=== PATIENT | male | born 1940 | race Caucasian/White ===

== ENCOUNTER 2021-01-23 22:28 | Emergency (ER) | payer MEDICARE ==
--- NOTE | 2021-01-23 23:03 | EDM.PDOC ---
ED HPI GENERAL MEDICAL PROBLEM - General Chief Complaint: Respiratory Problem Stated Complaint: SOB Time Seen by Provider: 01/23/21 22:30 Source of Information: Reports: Patient History Limitations: Reports: No Limitations - History of Present Illness INITIAL COMMENTS - FREE TEXT/NARRATIVE: pt presents with shortness of breath which started about an hour [employer]. states intermittent hx of similar symptoms with "anxiety" with activity which improves with rest. recent pneumonia in December 2020. med hx of DM2, HTN. PCP in [place]. pt denies chest pain, nausea, vomiting, dizziness, unilateral weakness, cough, fever. Onset: Today, Sudden Onset Date: 01/23/21 Onset Time: 21:30 Improves with: Reports: Rest Worsens with: Reports: Movement (activity) Context: Reports: Activity Associated Symptoms: Reports: No Other Symptoms - Related Data Allergies Allergy/AdvReac Type Severity Reaction Status Date / Time No Known Allergies Allergy Verified 01/23/21 23:24 ED ROS GENERAL - Review of Systems Review Of Systems: Comprehensive ROS is negative, except as noted in HPI. ED EXAM, GENERAL - Physical Exam Exam: See Below Exam Limited By: No Limitations General Appearance: Alert, WD/WN Throat/Mouth: Normal Inspection, Normal Lips Respiratory/Chest: No Respiratory Distress, No Accessory Muscle Use, Crackles, Rales Cardiovascular: Normal Peripheral Pulses, Regular Rate, Rhythm, No Murmur Peripheral Pulses: 2+: Radial (L), Radial (R) Extremities: Pedal Edema (left leg +2 pitting edema. R leg) Neurological: Alert, Oriented, CN II-XII Intact Psychiatric: Normal Affect Skin Exam: Warm, Dry, Intact, Normal Color #1 Interpretation EKG Date: 01/24/21 Rhythm: NSR P-Wave: Present QRS: RBBB ST-T: Normal QT: Normal Comparison: NA - No Prior EKG Course - Orders/Labs/Meds Orders: Active Orders 24 hr Category Date Time Status Blood Glucose Check, Bedside [RC] ONETIME Care 01/23/21 22:38 Active Chest 1V Frontal [CR] Stat Exams 01/23/21 22:33 Ordered B-TYPE NATRIURETIC PEPTIDE,BNP [CHEM] Stat Lab 01/23/21 22:34 Ordered CBC WITH AUTO DIFF [HEME] Stat Lab 01/23/21 22:33 Ordered COMPREHENSIVE METABOLIC PN,CMP [CHEM] Stat Lab 01/23/21 22:33 Ordered D Dimer [D-DIMER QUANTITATIVE] [COAG] Stat Lab 01/23/21 22:36 Ordered TROPONIN I [CHEM] Stat Lab 01/23/21 22:33 Ordered - Radiology Interpretation Free Text/Narrative:: CXR shows some pulmonary vascular congestion and blunting of the right side costophrenic angles. no pneumothoracies noted, no bony abnormalities noted. Departure - Departure Time of Disposition: 00:30 Disposition: DC/Tfer to [facility] 02 Condition: Fair Clinical Impression: Acute heart failure, Flash pulmonary edema, Diabetes - Discharge Information *PRESCRIPTION DRUG MONITORING PROGRAM REVIEWED*: Not Applicable *COPY OF PRESCRIPTION DRUG MONITORING REPORT IN PATIENT DIANA: Not Applicable Forms: ED Department Discharge, Interfacility Transfer EMTALA - Problem List & Annotations (1) Acute heart failure SNOMED Code(s): 85930547 Code(s): I50.9 - HEART FAILURE, UNSPECIFIED Status: Acute Priority: High (2) Flash pulmonary edema SNOMED Code(s): 460265787 Code(s): J81.0 - ACUTE PULMONARY EDEMA Status: Acute Priority: High - Problem List Review Problem List Initiated/Reviewed/Updated: Yes - My Orders Last 24 Hours: My Active Orders 01/23/21 22:33 Chest 1V Frontal [CR] Stat CBC WITH AUTO DIFF [HEME] Stat COMPREHENSIVE METABOLIC PN,CMP [CHEM] Stat TROPONIN I [CHEM] Stat 01/23/21 22:34 B-TYPE NATRIURETIC PEPTIDE,BNP [CHEM] Stat 01/23/21 22:36 D Dimer [D-DIMER QUANTITATIVE] [COAG] Stat 01/23/21 22:38 Blood Glucose Check, Bedside [RC] ONETIME - Assessment/Plan Last 24 Hours: My Active Orders 01/23/21 22:33 Chest 1V Frontal [CR] Stat CBC WITH AUTO DIFF [HEME] Stat COMPREHENSIVE METABOLIC PN,CMP [CHEM] Stat TROPONIN I [CHEM] Stat 01/23/21 22:34 B-TYPE NATRIURETIC PEPTIDE,BNP [CHEM] Stat 01/23/21 22:36 D Dimer [D-DIMER QUANTITATIVE] [COAG] Stat 01/23/21 22:38 Blood Glucose Check, Bedside [RC] ONETIME Assessment:: acute HF with flash pulmonary Edema by CXR showing bilateral congestion and infiltrates. some RLL consolodation vs infiltrate. treated with x4 doses SL nitro and 40mg lasix IV. BP initially was 219systolic but at dispo reduced to 150s-160s systolic. initial HR 120s, dispo HR 90s, initial SpO2 80s, placed on 5lpm O2 and weaned to 2lpm O2 during ED course with SaO2 90%s. delay in transport due to EMS availability. pt provided regular meds of metoprolol 50mg PO, simvistatin, lantus. pt will be transferred to [facility], accepting physician Dr. Evans. differentials considered: PE, PNA, CHF, COPD exacerbation, Asthma.
[2021-01-23] MEDS ORDERED: Furosemide 40 MG/4 ML VIAL IVPUSH ONE (23:35)
[2021-01-23] MEDS: Nitroglycerin 0.4 MG Tab.SL SL ONE ×2 (23:50→23:59)
[2021-01-24] MEDS: Nitroglycerin 0.4 MG Tab.SL SL PRN ×2 (00:52→01:39)
[2021-01-24] MEDS ORDERED: 50% Dextrose in Water 50 ML Syringe IVPUSH PRN (01:20)
[2021-01-24] MEDS ORDERED: Glucagon,Human Recombinant 1 MG Vial IM PRN (01:20)
[2021-01-24] MEDS ORDERED: Metoprolol Succinate 50 MG Tab.ER PO ONE (01:20)
[2021-01-24] MEDS ORDERED: Insulin Glargine,Human Rec. Analog 100 Units/ML 3 ML Pen SUBCUT SCH (01:30)
[2021-01-24] MEDS ORDERED: Simvastatin 40 MG Tab PO STA (01:31)
--- NOTE | 2021-01-24 08:58 | CR ---
Date of Service: 01/23/21 Clinical Data: short of breath PORTABLE CHEST: No priors. Patient has taken a poor inspiration. The heart size is normal. The pulmonary vasculature does appear mildly prominent. It is probably accentuated by the poor inspiration. There is increased density in the right lung base consistent with infiltrate or atelectasis. Pneumonia should be considered. There is blunting of the right costophrenic angle consistent with small right pleural effusion. There is slight increased density in the left lung base and the left costophrenic angle. The left lung is otherwise clear. No other significant findings. No pneumothorax. [id number] [facility]
== END 2021-01-24 02:15 ==
LOC: LB.ED 22:28
DX: I11.0 Hypertensive heart disease with heart failure (principal); I50.1 Left ventricular failure, unspecified; E11.9 Type 2 diabetes mellitus without complications
CPT/HCPCS: 36415; 71045; 80053; 82947; 83880; 84484; 85025; 85379; 93005; 96374; 99285; A0425; A0429; A9270; J1940

== ENCOUNTER 2024-08-21 23:35 | Emergency (ER) | payer MEDICAID, MEDICARE ==
[2024-08-21] MEDS: Insulin Glargine,Human Rec. Analog 100 Units/ML 3 ML Pen SUBCUT SCH (23:55)
== END 2024-08-22 00:01 | disposition home or self-care (01) ==
LOC: LB.ED 23:35
DX: E11.9 Type 2 diabetes mellitus without complications (principal); I10 Essential (primary) hypertension; E78.00 Pure hypercholesterolemia, unspecified; E66.9 Obesity, unspecified; Z68.35 Body mass index [BMI] 35.0-35.9, adult; Z79.4 Long term (current) use of insulin; Z79.890 Hormone replacement therapy; Z79.899 Other long term (current) drug therapy
CPT/HCPCS: 99281